=== PATIENT | female | born 1980 | race African-American/Black ===

== ENCOUNTER 2024-10-18 15:35 | Outpatient (REF) | payer MEDICAID, SELFPAY ==
[2024-10-18 17:01] LABS: Estimated Average Glucose 108 mg/dL; Hemoglobin A1C 120.3698 umol/L; Hemoglobin A1c % 5.4 % (<6.0); Total Hemoglobin (HGBA1C) 3357.6367 umol/L
[2024-10-18 17:42] LABS: Alanine Aminotransferase 17 U/L (0-31); Anion Gap 10 (12-20); Aspartate Amino Transferase 21 U/L (5-31); Bilirubin Total 0.5 mg/dL (0.0-1.0); Blood Urea Nitrogen 14 mg/dL (9-16); Calcium 8.9 mg/dL (8.4-10.2); Carbon Dioxide 25 mmol/L (22-29); Chloride 108 mmol/L (96-108); Cholesterol 146 mg/dL (<200); Estimated Glomerular Filt Rate > 60; Glucose Random 84 mg/dL (60-115); HDL Cholesterol 56 mg/dL (>40); LDL Cholesterol Calculated 78 mg/dL (<100); Sodium 139 mmol/L (135-145); Total Protein 7.3 g/dL (6.5-8.0); Triglycerides 64 mg/dL (<150)
[2024-10-18 17:47] LABS: Alkaline Phosphatase 50 U/L (39-117); TSH reflex Free T4 0.68 uIU/mL (0.32-4.0)
[2024-10-19 03:48] LABS: CT PCR NOT DETECTED (Not Detect.); NG PCR NOT DETECTED (Not Detect.)
[2024-10-19 08:44] LABS: HIV AB/AG Nonreactive (Nonreactive); HIV Num 1 0.07 S/CO (0.00-0.99); ~HepC Num1 0.16 S/CO (0.00-0.79); ~Hepatitis C Antibody Nonreactive (Nonreactive)
[2024-10-20 14:57] LABS: RPR Rapid Plasma Reagin REACTIVE (NON-REACTIVE)
== END 2024-10-18 15:36 | disposition home or self-care (01) ==
LOC: HO.HHCL 15:35
PROVIDERS: Visit Provider Nurse Practitioner Family
DX: Z00.00 Encounter for general adult medical examination without abnormal findings (principal); Z11.4 Encounter for screening for human immunodeficiency virus [HIV]; Z11.3 Encounter for screening for infections with a predominantly sexual mode of transmission; R73.9 Hyperglycemia, unspecified; E01.0 Iodine-deficiency related diffuse (endemic) goiter
CPT/HCPCS: 36415; 80053; 80061; 83036; 84443; 86592; 86593; 86803; 87389; 87491; 87591

== ENCOUNTER → 2024-12-07 15:45 | Outpatient (BNV) | payer MEDICAID, SELFPAY | PROVIDERS: PCP Nurse Practitioner Family; Visit Provider Internal Medicine | DX: Z12.31 Encounter for screening mammogram for malignant neoplasm of breast (principal) | CPT/HCPCS: 77063; 77067 ==

== ENCOUNTER 2024-12-07 15:54 | Outpatient (REF) | payer MEDICAID, SELFPAY | END 2024-12-07 15:55 | disposition home or self-care (01) | LOC: HO.MAMMO 15:54 | PROVIDERS: PCP Nurse Practitioner Family; Visit Provider Nurse Practitioner Family | DX: Z12.31 Encounter for screening mammogram for malignant neoplasm of breast (principal) | CPT/HCPCS: 77063; 77067 ==

== ENCOUNTER 2024-12-27 14:23 | Outpatient (REF) | payer MEDICAID, SELFPAY ==
[2024-12-28 09:26] LABS: Syphilis Screen Reactive (Nonreactive)
[2025-01-02 09:42] LABS: RPR Quantitative Reactive 1:2 (Nonreactive); T.Pallidum Particle Agg Test Reactive (Nonreactive)
== END 2024-12-27 14:24 | disposition home or self-care (01) ==
LOC: HO.HHCL 14:23
PROVIDERS: Visit Provider Nurse Practitioner Family
DX: R76.0 Raised antibody titer (principal)
CPT/HCPCS: 36415; 86592; 86780

== ENCOUNTER 2025-01-05 13:12 | Outpatient (REF) | payer MEDICAID, SELFPAY ==
[2025-01-05 16:57] LABS: HCG Quantitative < 2 mIU/mL
== END 2025-01-05 13:13 | disposition home or self-care (01) ==
LOC: HO.HHCL 13:12
PROVIDERS: Visit Provider Nurse Practitioner Family
DX: A51.9 Early syphilis, unspecified (principal)
CPT/HCPCS: 36415; 84702

== ENCOUNTER 2025-01-20 16:29 | Outpatient (REF) | payer MEDICAID, SELFPAY | END 2025-01-20 16:30 | disposition home or self-care (01) | LOC: HO.HHCLNP 16:29 | PROVIDERS: Visit Provider Nurse Practitioner Family | DX: Z12.4 Encounter for screening for malignant neoplasm of cervix (principal); Z11.51 Encounter for screening for human papillomavirus (HPV); Z11.3 Encounter for screening for infections with a predominantly sexual mode of transmission | CPT/HCPCS: 81515; 87491; 87591; 87626; 87661; 88175 ==

== ENCOUNTER 2025-03-21 12:46 | Outpatient (REF) | payer MEDICAID, SELFPAY ==
--- NOTE | ~2025-03-21 | XR_ITS ---
EXAMINATION: XR SHOULDER 2 OR MORE VIEWS LEFT HISTORY: pain COMPARISON: There are no prior studies available for comparison. FINDINGS: Five views of the left shoulder are submitted. Osseous mineralization is normal. There is no fracture or dislocation. The joint spaces are preserved. The soft tissues are unremarkable. XR/XR shoulder LT min 2V IMPRESSION: Unremarkable examination of the left shoulder. Electronically signed by: Ozzy Tan MD 03/21/2025 01:21 PM EDT
--- OUTSIDE RECORDS SUMMARY | 2025-03-21 13:55 | XMS_ITS | Encounter Summary ---
Author Organization [employer] Address [address] [facility] [address] [place] [address] Care Team Providers Care Catapult And Arresting Gear Officer Name Role Phone Tahira Meek NP Primary Care Provider [phone] Reason for Visit * Reason Onset Date Comments Results 12/20/2024 Encounter Details Date Type Department Care Team ([facility] st Contact Info) Description 12/20/2024 Telephone [facility] [address] [place], [place] [phone] Tahira Meek NP [address] [place], [place] [phone] Results Social History Tobacco Use Types Packs/Day Years Used Date Smoking Tobacco: Never Passive Smoke Exposure: Never Smokeless Tobacco: Never Alcohol Use Standard Drinks/Week Comments Never 0 (1 standard drink = 0.6 oz pur e alcohol) Comments Unknown Sex and Gender Information Value Date Recorded Sex Assigned at Female 05/02/2024 4:30 PM EDT Legal Sex Female 2:34 PM EDT Gender Identity Female 05/02/2024 4:30 PM EDT Sexual Orientation Straight 05/02/2024 4: 30 PM EDT documented as of this encounter Miscellaneous Notes * Telephone Encounter - Ban Amor RN - 12/27/2024 1:25 PM EDT Images from the original note were not included. TC x 2 placed to pt via S airport attendant (ID#[id number]) per below PCP message. Message recevied, The person you are trying to reach has a voicemail box that has not been set up yet. Please try your call again later. Individual then answered and asked for database programmer analyst. TC placed to pt via [facility] airport attendant (Dara). 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 Pt reports they have not been treated before. Pt reports they will come to the lab now for blood work. Pt denies further questions at this time. Message forwarded to PCP as an FYI. 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 has she ever been treated before? If not, please follow up with blood work as ordered, thank you. We will call pt when results are available * Telephone Encounter - Tahira Meek NP - 12/27/2024 11:10 AM EDT Case reviewed with partner services, no antibody on file, will order confirmatory testing after clarifying hx. * Telephone Encounter - Katya Driver RN - 12/21/2024 10:46 AM EDT Tc to Vee @ [facility] in regards to RPR reactive 1:8 result done on 10/18/24. They asked when pt LMP was.They would like to know if PCP will be doing anything for treatment or ordering an antibodies testing. Advised them we'll send a message to the PCP to review and call them back to let them know what their plan is. Vee verbalized understanding. Tc to Vee @[facility] per PCP Please call [facility] for next steps on this result, pt hx of treatment unknown thank you . Vee recommends for PCP to order an syphilis antibody and another RPR confirmatory testing as well. Message sent to PCP for review. * Telephone Encounter - Genevieve Lin - 12/20/2024 4:02 PM EDT Tc from vee with [facility] requesting a call back regarding some result that they receive Contact Vee at [phone] documented in this encounter Plan of Treatment Upcoming Encounters Date Type Department Care Team (Late st Contact Info) Description 04/11/2025 3:00 PM EDT Office Visit [facility] [address] [place] [address] Marianne Jarquin 07/03/2025 11:00 AM EST Office Visit [facility] [address] [place] [address] Lillie Mena, OD [address] [place] [address] Scheduled Orders Name Type Priority Associated Diagnoses Orde r Schedule Treponema pallidum, confirmation Lab Routine Abnormal antibody titer Expected: 12/27/2024 (Approximate), Expires: 12/27/2025 documented as of this encounter Procedures Procedure Name Priority Date/Time Associated Diagnosis Comments CONFIRMATORY SYPHILIS PROFILE Routine 12/27/2024 3:56 PM EDT Abnormal antibody titer documented in this encounter Results * (ABNORMAL) Confirmatory Syphilis Profile (12/27/2024 3:56 PM EDT) Rapid Plasma Reagin, Quant Reactive 1:2(A) Nonreactive [facility] Treponema pallidum Antibody, Particle Agglutination Reactive(A) Nonreactive [facility] Comment:These results must b e reported by the ordering clinician orclinical facility to the [place] [facility] required by state law.Testing performed at: [address] [address] 12/27/2024 3:56 PM EDT 12/28/2024 9:24 AM EDT us Tahira Meek NP LAB BLOOD ORDERABLES Final Resul t [facility] [address] [place] [address] [phone] documented in this encounter Visit Diagnoses Diagnosis Abnormal antibody titer- Primary documented in this encounter Care Teams Catapult And Arresting Gear Officer Relationship Specialty Start Date End Date Tahira Meek NP [address] [place] [phone] PCP - General Family Medicine 10/18/24 documented as of this encounter
== END 2025-03-21 12:47 | disposition home or self-care (01) ==
LOC: HO.HHCX 12:46
PROVIDERS: Visit Provider Internal Medicine
DX: M25.512 Pain in left shoulder (principal)
CPT/HCPCS: 73030

== ENCOUNTER → 2025-03-21 12:46 | Outpatient (BNV) | payer MEDICAID, SELFPAY | PROVIDERS: Visit Provider Radiology Diagnostic Radiology | DX: M25.512 Pain in left shoulder (principal) | CPT/HCPCS: 73030 ==

== ENCOUNTER 2025-06-13 14:34 | Outpatient (REF) | payer MEDICAID, SELFPAY ==
[2025-06-13 16:42] LABS: Alanine Aminotransferase 19 U/L (0-31); Albumin Level 4.5 g/dL (3.5-5.0); Alkaline Phosphatase 63 U/L (39-117); Anion Gap 11 (12-20); Aspartate Amino Transferase 24 U/L (5-31); Blood Urea Nitrogen 15 mg/dL (9-16); Calcium 9.0 mg/dL (8.4-10.2); Carbon Dioxide 24 mmol/L (22-29); Chloride 105 mmol/L (96-108); Cholesterol 145 mg/dL (<200); Estimated Glomerular Filt Rate > 60; HDL Cholesterol 56 mg/dL (>40); Potassium 4.1 mmol/L (3.3-5.1); Sodium 136 mmol/L (135-145); Total Protein 7.2 g/dL (6.5-8.0); Triglycerides 44 mg/dL (<150)
== END 2025-06-13 14:35 | disposition home or self-care (01) ==
LOC: HO.HHCL 14:34
PROVIDERS: PCP Nurse Practitioner Family; Visit Provider Nurse Practitioner Family
DX: E66.9 Obesity, unspecified (principal)
CPT/HCPCS: 36415; 80053; 80061; 83036

== ENCOUNTER 2025-07-05 13:24 | Outpatient (REF) | payer MEDICAID, SELFPAY ==
--- OUTSIDE RECORDS SUMMARY | 2025-07-03 11:00 | XMS_ITS | Encounter Summary ---
Author Organization [employer] Address [address] [place] [address] [address] [place] [address] Care Team Providers Care Mobile Plant Operators Name Role Phone Tahira Meek NP Primary Care Provider [phone] Encounter Details Date Type Department Care Team ([facility] st Contact Info) Description 07/03/2025 11:00 AM EST Office Visit [facility] OPTOMETRY [address] [place], [place] [phone] TarLillie melo, OD [address] [place], [place] [phone] Open angle with borderline findings, low risk, bilateral (Primary Dx) Social History Tobacco Use Types Packs/Day Years Used Date Smoking Tobacco: Never Passive Smoke Exposure: Never Smokeless Tobacco: Never Alcohol Use Standard Drinks/Week Comments Never 0 (1 standard drink = 0.6 oz pur e alcohol) Housing Stability Answer Date Recorded What is your housing situation today? I have lisa desouza 06/13/[address] you li ve. Do you have problems with any of the following? Inadequate heat;None of the above 06/13/2025 Food Insecurity Answer Date Recorded Within the past 12 months, y ou worried that your food would run out before you got money to buy more: Often true 2024 Within the past 12 months,th e food you bought just didn't last and you didn't have enough money to get more: Sometimes True 06/13/2025 Transportation Answer Date Recorded In the past 12 months, has l ack of transportation kept you from medical appts, meetings, work or from getting things needed for daily living? Yes, it has kept me from medical appointments or getting medications.;Yes, it has kept me from non-medical meetings, work, or getting things that I need 06/13/2025 Utilities Answer Date Recorded In the past 12 months, has t he electric, gas, oil or water company threatened to shut off services in your home? No 06/13/2025 Depression Answer Date Recorded Patient Health Questionnaire-2 Score 0 06/13/2025 Internet Access Answer Date Recorded Internet Access Q1 No 06/13/2025 Internet Access Q2 I cannot afford it 06/13/2025 Comments Unknown Sex and Gender Information Value Date Recorded Sex Assigned at Female 05/02/2024 4:30 PM EDT Legal Sex Female 2:34 PM EDT Gender Identity Female 05/02/2024 4:30 PM EDT Sexual Orientation Straight 05/02/2024 4: 30 PM EDT documented as of this encounter Progress Notes * Lillie Mena, OD - 07/03/2025 11:00 AM EST Eye Care Progress Note Patient ID: Nay Blackwood is a 44 y.o. female. HPI Patient presents for IOP check and repeat OCTs OU Patient is happy with vision OU through her current glasses. Patient denies any other visual or ocular concerns. Last edited by Lillie Mena, OD on 07/03/2025 11:31 AM. Current Medications[1] Medical History[2] Surgical History[3] Family History[4] Tobacco Use: Low Risk (06/13/2025) Tobacco Smoking Tobacco Use: Never Smokeless Tobacco Use: Never Passive Exposure: Never Allergies[5] ROS Positive for: Eyes Negative for: Constitutional, Gastrointestinal, Neurological, Skin, Genitourinary, Musculoskeletal,HENT, Endocrine, Cardiovascular, Respiratory, Psychiatric, Allergic/Imm, Heme/Lymph Last edited by Lillie Mena, OD on 07/04/2025 9:35 AM. Base Eye Exam Visual Acuity (Snellen - Linear) Right Left Dist cc 20/25-1 20/25-1 Tonometry (Applanation, 11:27 AM) Right Left Pressure 17 17 Pupils Pupils APD Right PERRL None Left PERRL None Visual Young (Counting fingers) Left Right Full Full Extraocular Movement Right Left Full Full Neuro/Psych Oriented x3: Yes Mood/Affect: Normal Dilation Both eyes: 1.0% tropicamide @ 11:30 AM Slit Lamp and Fundus Exam External Exam Right Left External Normal Normal Slit Lamp Exam Right Left Lids/Lashes Clean and clear Clean and clear Conjunctiva/Sclera White and quiet White and quiet Cornea 1+ inferior SPK 1+ inferior SPK Anterior Chamber Deep and quiet, angles open Deep and quiet, angles open Iris Flat, round Flat, round Lens Clear Clear Fundus Exam Right Left Vitreous Clear Clear Disc Chesaning and healthy, large ONH Chesaning and healthy, large ONH C/D Ratio Vertical 0.70 0.70 C/D Ratio Horizontal 0.70 0.65 Macula Flat, even pigmentation Flat, even pigmentation Vessels AV 2/3, normal course and caliber AV 2/3, normal course and caliber Periphery No holes/tears/detachments 360 No holes/tears/detachments 360 Assessment and Plan Diagnoses and all orders for this visit: Open angle with borderline findings, low risk, bilateral - Glaucoma risk profile/summary - POAG suspect due to: large cup-to-disc ratio (C/D) both eyes (OU), high myopia - Fhx glaucoma: None - IOP today (GAT): - Tmax - RNFL OCT today (07/04/25): Robust RNFL 360 both eyes (OU). Stable. - GCL OCT today (07/04/25): Robust RNFL 360 both eyes (OU). Stable. - Very low risk suspect OU at this time. Ok to monitor annually. RTC in 1 year for comprehensive eye exam or sooner as needed Lillie Rajesh, OD 07/04/2025, 1:01 PM Gardener Florist Source: __ None __ Bilingual Staff _x_ Qualified Staff Clinical Research Analyst __ Telephone Gardener Florist; ID# __ Gardener Florist brought by patient (family member, friend, GENERAL INTERNAL MEDICINE DOCTOR, etc) __ In person glazier supervisor __ Ipad Gardener Florist; ID#: Language Spoken During Exam: Carolee Mcneil [1] Current Outpatient Medications Medication Sig Dispense Refill acetaminophen (Tylenol 8 Hour) 650 MG ER tablet Take 1 tablet (650 mg) by mouth every 8 (eight) hours if needed for mild pain. Do not crush, chew, or split. 30 tablet 0 Blood Pressure kit 1 kit if needed each day (bood pressure). 1 kit 0 ibuprofen 600 MG tablet Take 1 tablet (600 mg) by mouth 3 times daily. 15 tablet 0 polyvinyl alcohol (Liquifilm Tears) 1.4 % ophthalmic solution Administer 1 drop into both eyes if needed in the morning and at bedtime for dry eyes. 15 mL 4 No current facility-administered medications for this visit. [2] Past Medical History: Diagnosis Date No known health problems [3] No past surgical history on file. [4] No family history on file. [5] No Known Allergies documented in this encounter Plan of Treatment Upcoming Encounters Date Type Department Care Team (Late st Contact Info) Description 07/13/2025 2:00 PM EST Clinical Support [facility] [address] [place] [address] 10/11/2025 12:45 PM EDT Office Visit [facility] ADULT DENTAL [address] [place], [place] [phone] Lainey, Concepcion [address] [place] [address] documented as of this encounter Procedures Procedure Name Priority Date/Time Associated Diagnosis Comments OCT, OPTIC NERVE - OU - BOTH EYES Routine 07/03/2025 11:00 AM EST Open angle with borderline findings, low risk, bilateral documented in this encounter Results * OCT, Optic Nerve - OU - Both Eyes (07/03/2025 11:00 AM EST) Lillie Rankin, OD - 07/04/2025 9:41 AM EST OCT OPTIC NERVE INTERPRETATION Optical Coherence Tomography Interpretation Report Reliability: OD: SS 46 - adequate quality scan OS: SS 55 - good quality scan Measurements: Avg RNFL thickness OD: 112 microns OS: 115 microns Test findings: OD: Robust RNFL 360. Some changes to inferior nasal and superior nasal however poorer signal quality is likely confounding results. OS: Robust RNFL 360 except for borderline thin area at 5:00. Stable to last. note - attempted 3D wide image for OS but unable to obtain high quality image due to highly curved myopic fundus, only able to obtain adequate quality results with disc report Impression and Plan: Very low risk primary open angle glaucoma (POAG) suspect. Monitor yearly with OCT us Lillie Mena OD OPHTH TOMOGRAPHY Final Result documented in this encounter Visit Diagnoses Diagnosis Open angle with borderline findings, low risk, bilateral- Primary documented in this encounter Care Teams Mobile Plant Operators Relationship Specialty Start Date End Date Tahira Meek NP [address] [place] [phone] PCP - General Family Medicine 10/18/24 documented as of this encounter
--- OUTSIDE RECORDS SUMMARY | 2025-07-05 15:56 | XMS_ITS | Encounter Summary ---
Author Organization [employer] Address [address] [facility] [address] [place] [address] Care Team Providers Care Security Manager Name Role Phone GaviotaTahira CARINA Primary Care Provider [phone] Encounter Details Date Type Department Care Team (Latest Contact Info) Description 07/03/2025 Travel Social History Tobacco Use Types Packs/Day Years [...] PM EDT documented as of this encounter Plan of Treatment Upcoming Encounters Date Type Department Care Team (Late st Contact Info) Description 07/13/2025 2:00 PM EST Clinical Support [facility] [address] [place] [address] 10/11/2025 12:45 PM EDT Office Visit [facility] ADULT DENTAL [address] [place] [address] Concepcion Retana [address] [place] [address] documented as of this encounter Visit Diagnoses Not on filedocumented in this encounter Care Teams Security Manager Relationship Specialty Start Date End Date Tahira Meek NP [address] [place] [address] PCP - General Family Medicine 10/18/24 documented as of this encounter
--- OUTSIDE RECORDS SUMMARY | 2025-07-05 15:56 | XMS_ITS | Clinical Summary ---
Author Organization [employer] Address [address] [place] [address] Care Team Providers Care Data Entry Technician Name Role Phone Tahira Meek NP Primary Care Provider Allergies No known active allergies Medications * This document contains information received from the source organization and may not represent a complete record from that organization. Blood Pressure kitIndications: Elevated blood pressure reading 1 kit if needed each day (bood pressure). 1 kit 5 Active polyvinyl alcohol (Liquifilm Tears) 1.4 % ophthalmic solutionIndicat ions:Dry eyes, bilateral Administer 1 drop into both eyes if needed in the morning and at bedtime for dry eyes. 15 mL 4 07/05/2025 1:22 PM EST 5 Active acetaminophen (Tylenol 8 Hour) 650 MG ER tablet Take 1 tablet (650 mg) by mouth every 8 (eight) hours if needed for mild pain. Do not crush, chew, or split. 30 tablet 5 Active ibuprofen 600 MG tabletIndicatio ns:Pain, dental Take 1 tablet (600 mg) by mouth 3 times daily. 15 tablet 5 Active Active Problems Problem Noted Date Diagnosed Date Carpal tunnel syndrome on both sides 06/13/2025 Assessment & Plan (06/13/2025 1:43 PM EST): Dietary counseling 06/13/2025 Assessment & Plan (06/13/2025 1:43 PM EST): Exercise counseling 06/13/2025 Assessment & Plan (06/13/2025 1:43 PM EST): Obesity (BMI 30-39.9) 06/13/2025 Assessment & Plan (06/13/2025 1:43 PM EST): Orders: Lipid Panel, Standard; Future Comprehensive Metabolic Panel; Future Hemoglobin A1c; Future Alveolitis of jaw, right 05/09/2025 Dental caries 05/09/2025 Pain, dental 05/09/2025 Dental calculus 04/05/2025 Acute pain of left shoulder 03/21/2025 Chest wall pain 03/21/2025 Assessment & Plan (03/21/2025 2:48 PM EDT): ED precautions were reviewed with patient Intercostal pain 03/21/2025 Vaginal thomas 01/23/2025 Positive RPR test 01/20/2025 Assessment & Plan (01/22/2025 3:12 PM EDT): Titer of 1: 8, asymptomatic, no known history of dx or treatment. 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 Contraception options reviewed, pt contemplative, did not like depo when was prescribed it hx, declines intervention today Anticipatory guidance reviewed, Schedule pap Hyperglycemia 10/18/2024 Elevated blood pressure reading 10/18/2024 Assessment & Plan (06/13/2025 1:43 PM EST): Assessment & Plan (12/17/2024 11:08 AM EDT): Bp kit prescribed, Monitor home bp Breast screening 10/18/2024 Assessment & Plan (12/17/2024 11:09 AM EDT): Mammogram ordered Thyromegaly 10/18/2024 Assessment & Plan (12/17/2024 11:08 AM EDT): Denies symptoms Labs as ordered below Encounters * This document contains information received from the source organization and may not represent a complete record from that organization. Date Type Department Care Team Description 07/03/2025 11:00 AM EST Office Visit [facility] OPTOM[facility]RY [address] [place] [address] Lillie Mena, OD Open angle with borderline findings, low risk, bilateral (Primary Dx) 07/03/2025 Travel 06/13/2025 1:00 PM EST Procedure Visit [facility] MEDICINE [address] [place] [address] aThira Meek NP Elevated blood pressure reading (Primary Dx); Carpal tunnel syndrome on both sides; Dietary counseling; Exercise counseling; Obesity (BMI 30-39.9) 06/13/2025 Travel 06/12/2025 Telephone [facility]IC[facility] [address] [place] [address] Tahira Meek NP Chart Prep 05/19/2025 2:30 PM EDT Office Visit [facility] ADULT DENTAL [address] [place] [address] Temo Kc DDS Alveolitis of jaw, right (Primary Dx); Pain, dental 05/09/2025 9:00 AM EDT Office Visit [facility] ADULT DENTAL [address] [place] [address] Temo Kc DDS Periodontal disease (Primary Dx); Dental caries; Pain, dental 04/05/2025 3:00 PM EDT Office Visit [facility] ADULT DENTAL [address] [place] [address] Concepcion Retana Dental calculus (Primary Dx) from Last 3 Months Social History Tobacco Use Types Packs/Day Years Used Date Smoking Tobacco: Never Passive Smoke Exposure: Never Smokeless Tobacco: Never Tobacco Cessation:Counseling Given: No Alcohol Use Standard Drinks/Week Comments Never 0 [...] Orientation Straight 05/02/2024 4: 30 PM EDT Last Filed Vital Signs Vital Sign Reading Time Taken Comments Blood Pressure 134/96 06/13/2025 1:10 PM EST Pulse 81 06/13/2025 1:10 PM EST Temperature 36.9 C (98.5 F) 06/13/2025 1:10 PM EST Respiratory Rate 14 06/13/2025 1:10 PM EST Oxygen Saturation 99% 06/13/2025 1:10 PM EST Inhaled Oxygen Concentration - - Weight 93.7 kg (206 lb 8 oz) 06/13/2025 1:10 PM EST Height 160 cm (5' 2.99 ) 06/13/2025 1:10 PM EST Body Mass Index 36.59 06/13/2025 1:10 PM EST Plan of Treatment Upcoming Encounters Date Type Department Care Team (Late st Contact Info) Description 07/13/2025 2:00 PM EST Clinical Support [facility] [address] [place] [address] 10/11/2025 12:45 PM EDT Office Visit [facility] ADULT DENTAL [address] [place] [address] Lainey, Concepcion [address] [place] [address] Health Maintenance Due Date Last Done Comments Family Planning (PISQ) 11/25/1995 HPV Vaccines (1 - 3-dose series) 11/25/1995 DTaP/Tdap/Td Vaccines (1 - Tdap) 11/25/1999 Hepatitis B Vaccines (1 of 3 - 19+ 3-dose series) 11/25/1999 Dental Oral Exam 03/08/2025 09/07/2024 COVID-19 Vaccine (1 - 2024-2 6 season) 2025 Influenza Vaccine (#1) 2025 Dental X-Ray: Bitewings 09/08/2025 09/07/2024 Dental Prophylaxis 10/04/2025 04/05/2025, 09/13/2024 Alcohol/Substance Use Screening 01/20/2026 01/20/2025 Depression Screening 06/13/2026 06/13/2025, 06/13/2025 Disability Screening 06/13/2026 06/13/2025 SDOH Screening 06/13/2026 06/13/2025 Tobacco Screening 06/13/2026 06/13/2025 Mammogram 12/07/2026 12/07/2024 Pap Smear 01/21/2028 01/20/2025 Dental X-Ray: Full Mouth 05/10/2028 025, 09/07/2024 Cervical Cancer Screening 01/20/2030 HPV/Cotest 01/20/2030 01/20/2025 Lipid Panel 06/13/2030 06/13/2025, 10/18/2024 Zoster Vaccines (1 of 2) 2030 RSV Patients and Patients Aged 60 years or older (1 - 1-dose 75+ series) 11/25/2055 HIV Screening Completed 10/18/2024 Hepatitis C Screening Completed 10/18/2024 HIB Vaccines Aged Out No longer eligi ble based on patient's age to complete this topic Hepatitis A Vaccines Aged Out No long er eligible based on patient's age to complete this topic IPV Vaccines Aged Out No longer eligi ble based on patient's age to complete this topic Meningococcal B Vaccine Aged Out No l onger eligible based on patient's age to complete this topic Meningococcal Vaccine Aged Out No jamshid sintia eligible based on patient's age to complete this topic Pneumococcal Vaccine: Pediatrics (0 to 5 Years) and At-Risk Patients (6 to 49) Years Aged Out No longer eligible b ased on patient's age to complete this topic RSV under 20 months Aged Out No longe r eligible based on patient's age to complete this topic Rotavirus Vaccines Aged Out No longer eligible based on patient's age to complete this topic Procedures Procedure Name Priority Date/Time Associated Diagnosis Comments OCT, OPTIC NERVE - OU - BOTH EYES Routine 07/03/2025 11:00 AM EST Open angle with borderline findings, low risk, bilateral HEMOGLOBIN A1C Routine 06/13/2025 2:40 PM EST Obesity (BMI 30-39.9) COMPREHENSIVE METABOLIC PANEL Routine 06/13/2025 2:40 PM EST Obesity (BMI 30-39.9) LIPID PANEL, STANDARD Routine 06/13/2025 2:40 PM EST Obesity (BMI 30-39.9) NO CHARGE VISIT Routine 05/19/2025 2:30 PM EDT 32 EXTRACTION, ERUPTED TOOTH REQ REMOVAL OF BONE AND/OR SECTIONING OF TOOTH Routine 05/09/2025 9:00 AM EDT PANORAMIC RADIOGRAPHIC IMAGE Routine 05/09/2025 9:00 AM EDT CASE PRESENTATION, DETAILED AND EXTENSIVE TREATMENT PLANNING Routine 05/09/2025 9:00 AM EDT CASE PRESENTATION, DETAILED AND EXTENSIVE TREATMENT PLANNING Routine 04/05/2025 3:00 PM EDT Dental calculus ORAL HYGIENE INSTRUCTIONS Routine 04/05/2025 3:00 PM EDT Dental calculus PROPHYLAXIS - ADULT Routine 04/05/2025 3 :00 PM EDT Dental calculus HPV DNA, LOW/HIGH RISK Routine 3:01 PM EDT Cervical cancer screening PAP SMEAR Routine 01/20/2025 3:01 PM EDT Cervical cancer screening BI MAMMOGRAM SCREENING TOMOSYNTHESIS BILATERAL Routine 12/07/2024 3:58 PM EDT Breast screening HEPATITIS C AB W/REFL TO HCV RNA, QN, PCR Routine 10/18/2024 3:38 PM EDT Routine general medical examination at a health care facility HIV 1/2 ANTIGEN/ANTIBODY, FOURTH GENERATION W/RFL Routine 10/18/2024 3:38 PM EDT Routine general medical examination at a health care facility INTRAORAL - COMPLETE SERIES OF RADIOGRAPHIC IMAGES Routine 09/07/2024 9:30 AM EST Encounter for dental examination Dental caries Dental calculus Dental plaque COMPREHENSIVE ORAL EVALUATION - NEW OR ESTABLISHED PATIENT Routine 09/07/2024 9:30 AM EST Encounter for dental examination Dental caries Dental calculus Dental plaque from Last 3 Months or Most Recently Relevant to Health Maintenance Results * OCT, Optic Nerve - OU [...] Lillie Mena OD OPHTH TOMOGRAPHY Final Result * Hemoglobin A1c (06/13/2025 2:40 PM EST) Hemoglobin A1c 5.6 <6.0 % [facility] Comment:Hemoglobin A1C Refer ence Range Adults: 4.8 - 6.0 % Non diabetic: < 6.0 % Goal: < 7.0 %Additional Action Suggested: > 8.0 %Note: Hemoglobin A1c results are invalid for patients with abnormal amounts of HbF. Blood transfusions may impact the HbA1c concentration in the patient sample. Estimated Average Glucose 114 mg/dL [facility] Comment:eAG = Estimated ave rage glucose which is %A1C expressed asaverage glucose, using the formula of the X0T-AudebwnDmuxfno Glucose study (ADAG), Diabetes Care, Vol.31,#8,Mar. 2007 Blood Venous blood specimen / Unknown 06/13/2025 2:40 PM EST 06/13/2025 4:08 PM EST Tahira Meek [employer] LAB BLOOD ORDERABLES Final Resul t [facility] [address] [place] [address] [phone] * Lipid Panel, Standard (06/13/2025 2:40 PM EST) Triglycerides 44 <150 mg/dL [facility] Comment:Desirable Triglyceri de: less than 150 mg/dLBorderline High Triglyceride 150-199 mg/dLHigh Triglyceride: 200-499 mg/dLVery High Triglyceride: greater than or equal to 5OO mg/dL Cholesterol 145 <200 mg/dL [facility] Comment:Desirable Cholestero l: less than 200 mg/dLBorderline High Cholesterol: 200-239 mg/dLHigh Cholesterol: greater than 239 mg/dL LDL Cholesterol Calculated 81 <100 mg/dL [facility] Comment:Desirable LDL: less than 100 mg/dLNear Optimal/Above Optimal LDL: 110- 129 mg/dLBorderline High LDL: 130-159 mg/dLHigh LDL: 160-189 mg/dLVery High LDL: greater than or equal to 190 mg/dL HDL Cholesterol 56 >40 mg/dL [facility] Comment:Desirable HDL: great er than 40 mg/dL Note: This HDL assay may give artificially low results in patients with liver disease. Blood Venous blood specimen / Unknown 06/13/2025 2:40 PM EST 06/13/2025 4:08 PM EST us Tahira Meek [employer] LAB BLOOD ORDERABLES Final Resul t [facility] [address] [place] [phone] [phone] * (ABNORMAL) Comprehensive Metabolic Panel (06/13/2025 2:40 PM EST) Sodium 136 135 - 145 mmol/L [facility] Potassium 4.1 3.3 - 5.1 mmol/L [facility] Chloride 105 96 - 108 mmol/L [facility] Carbon Dioxide 24 22 - 29 mmol/L [facility] Anion Gap 11(L) 12 - 20 [facility] Urea Nitrogen (BUN) 15 9 - 16 mg/dL [facility] Creatinine, Serum 0.82 0.5 - 1.4 mg/dL [facility] Estimated Glomerular Filt Rate >60 [facility] Comment:Chronic Kidney Disea se: Estimated GFR < 60 mL/min/1.47m0Udwbtb Kidney Disease: Estimated GFR < 15 mL/min/1.73m2 Glucose 90 60 - 115 mg/dL [facility] Calcium 9.0 8.4 - 10.2 mg/dL [facility] Bilirubin, Total 0.5 0.0 - 1.0 mg/dL [facility] Aspartate Amino Transferase 24 5 - 31 U/L [facility] Alanine Aminotransferase 19 0 - 31 U/L [facility] Total Protein 7.2 6.5 - 8.0 g/dL [facility] Albumin Level 4.5 3.5 - 5.0 g/dL [facility] Alkaline Phosphatase 63 39 - 117 U/L [facility] Blood Venous blood specimen / Unknown 06/13/2025 2:40 PM EST 06/13/2025 4:08 PM EST Tahira Meek NP LAB BLOOD ORDERABLES Final Resul t Performing Organization Address [facility]/ZIP Co de Phone Number [facility] [address] [place] [phone] * HPV High Risk with Reflex to Subtypes (01/20/2025 3:01 PM EDT) HPV High Risk Negative Negative [facility] HPV Genotype 16 Negative Negative [facility] HPV Genotype 18 Negative Negative [facility] Comment:HPV testing performe d at [facility] (CLIA#[id number]), [address] [place] [address].Testing for HPV was performed using the [employer]LEY 6800system. The presence of HPV in the female genital tract isassociated with a number of diseases, including cervicalcarcinoma. The HPV DNA high risk pool tests for HPV 31, 33,35, 39, 45, 51, 52, 56, 58, 59, 66 and 68. The testing forHPV 16 and 18 genotypes has also been performed. A positiveresult indicates detection of nucleic acid sequences fromone or more subtypes, whereas a negative result indicatessuch sequences were not detected. Pap Vial 01/20/2025 3:01 PM EDT 01/23/2025 8:15 AM EDT us Tahira Meek NP LAB BLOOD ORDERABLES Final Resul t Performing Organization Address [facility]/ZIP Co de Phone Number [facility] [address] [place] [phone] * Pap Smear (01/20/2025 3:01 PM EDT) Swab 01/20/2025 3:01 PM EDT 01/23/2025 8:15 AM EDT Narrative [facility] - 01/30/2025 12:11 PM EDT ----- ------- Name: Nay Salvador Age/Sex: 44/F : 1980 Unit#: [id number] Attend Dr: Re01/20/25 Status: PRE REF Location: [facility] Disch: ----- ------- SPEC : [id number] RECD: 01/23/25 STATUS: JOSÉ AGUAYO NUM: [id number] HANDY: 01/20/25-[facility] DR: Tahira Meek [employer] P[employer] ENTERED: 01/23/25 SP TYPE: Pap Smr SABRINA DR: ORDERED: Pap Smear, PAP path review Interpretation General Category: Negative for intraepithelial lesion/malignancy. Adequacy: No endocervical cells present. Interpretation: Focal parakeratosis. Fungal organisms consistent with Thomas species. HPV High Risk: Negative HPV Genotyping 16: Negative HPV Genotyping 18: Negative Clinical Information LMP: 01/12/2025 Previous PAP test: Unknown date/findings Other history: Cervical cancer screening Material Received ThinPrep-Cervical PAP Disclaimer As of May 25, 2024, the technical services to include automated prescreening performed by the ThinPrep Imaging System, PAP screening and HPV testing will be performed at [facility] (CLIA #[id number]), [address] [place] [address]. Testing for HPV was performed using the [employer] 6800 system. The presence of HPV in the female genital tract is associated with a number of diseases, including cervical carcinoma. The HPV DNA high risk pool tests for HPV 31, 33, 35, 39, 45, 51, 52, 56, 58, 59, 66 and 68. The testing for HPV 16 and 18 genotypes has also been performed. A positive result indicates detection of nucleic acid sequences from one or more subtypes, whereas a negative result indicates such sequences were not detected. All professional services are performed by [facility] ([address] [place] [address]; ; CLIA #[id number]). The PAP Test is a screening procedure with the inherent possibility of both false negative and false positive results. Results should be interpreted in the context of historic and current clinical findings. Reliability of the PAP Test is enhanced by performing the test on a regular repetitive basis. CONTINUED ON NEXT PAGE ----- ------- Name: Nay Salvador Age/Sex: 44/F : 1980 Unit#: [id number] Attend Dr: Re01/20/25 Status: PRE REF Location: [facility] Disch: ----- ------- SPEC : [id number] RECD: 01/23/25 STATUS: JOSÉ AGUAYO NUM: [id number] HANDY: 01/20/25-[address]: Tahira Meek [employer] ENTERED: 01/23/25 SP TYPE: Pap Smr [facility] DR: ORDERED: Pap Smear, PAP path review ----- ------- Signed (signature on file) Micah Scherer MD 01/30/25 1211 ----- ------- END OF REPORT us Tahira Meek NP LAB CYTOLOGY ORDERABLES Final Re sult [facility] [address] [place] [address] [phone] * BI Mammogram Screening Tomosynthesis Bilateral (12/07/2024 3:58 PM EDT) Anatomical Region Laterality Modality Breast Bilateral Mammography 12/07/2024 3:58 PM EDT Narrative 12/13/2024 5:07 PM EDT [facility] [address] [place] [address] [place] [address] Mammography Report Signed Patient: Nay Salvador MR#: [id number] : 1980 Acct:[id number] Age/Sex: 44 / F ADM Date: 12/07/24 Loc: [facility]MAMMO Attending Dr: Tahira Meek NP Ordering Physician: Tahira Meek NP Results: 1Negati ve Date of Service: 12/07/24 Follow Up: 1 Year From Orig inal Mammogram Procedure(s): MM tomosynthesis screening BI Accession Number(s): [id number] cc: Tahira Meek [employer] EXAMINATION: MM SCREENING DIGITAL BREAST TOMOSYNTHESIS, BILATERAL CLINICAL INFORMATION: Screening. Asymptomatic. COMPARISON: Mammography: Baseline. TECHNIQUE: Digital breast mammography with tomosynthesis is performed in both the craniocaudal and mediolateral oblique views along with computer-aided detection (CAD). FINDINGS: The breasts are heterogeneously dense, which may obscure small masses (ACR BI-RADS breast composition Category c). There are no significant masses, abnormal calcifications, or other abnormalities. MM/MM tomosynthesis screening BI IMPRESSION: No mammographic evidence of malignancy. ASSESSMENT: BI-RADS BI-RADS 1 - Negative RECOMMENDATION: Routine annual mammography screening. 1 year F/U This examination should not preclude the clinical evaluation of a suspicious palpable abnormality. This patient's information was entered into a reminder system with a target due date for their next mammogram. Electronically signed by: Ginna Padilla DO 12/13/2024 05:04 PM EDT Dictated By: Ginna Padilla DO Signed By: <Electronically signed by Ginna Padilla DO in OV> 12/13/24 1704 DD/ 1558 TD/TT: 12/07/24 1620 [employer] Pourer: Procedure Note Donotuseinterpreter, Image - [facility] [address] [place] [address] Mammography Report Signed Patient: Nay SalvadorMR#: [id number] : 1980Acct:[id number] Age/Sex: 44 / FADM Date: 12/07/24 Loc: HO.MAMMO Attending Dr: Tahira Meek [employer] Ordering Physician: Tahira Meek NPResults: 1Negati ve Date of Service: 12/07/24Follow Up: 1 Year From Orig inal Mammogram Procedure(s): MM tomosynthesis screening BI Accession Number(s): [id number] cc: Tahira Meek NP EXAMINATION: MM SCREENING DIGITAL BREAST TOMOSYNTHESIS, BILATERAL CLINICAL INFORMATION: Screening. Asymptomatic. COMPARISON: Mammography: Baseline. TECHNIQUE: Digital breast mammography with tomosynthesis is performed in both the craniocaudal and mediolateral oblique views along with computer-aided detection (CAD). FINDINGS: The breasts are heterogeneously dense, which may obscure small masses (ACR BI-RADS breast composition Category c). There are no significant masses, abnormal calcifications, or other abnormalities. MM/MM tomosynthesis screening BI IMPRESSION: No mammographic evidence of malignancy. ASSESSMENT: BI-RADS BI-RADS 1 - Negative RECOMMENDATION: Routine annual mammography screening. 1 year F/U This examination should not preclude the clinical evaluation of a suspicious palpable abnormality. This patient's information was entered into a reminder system with a target due date for their next mammogram. Electronically signed by: Ginna Padilla DO 12/13/2024 05:04 PM EDT Dictated By: Ginna Padilla DO Signed By: <Electronically signed by Ginna Padilla DO in OV> 12/13/24 1704 DD/ 1558 TD/TT: 12/07/24 1620 [employer] Pourer: Tahira Meek NP IMG BI PROCEDURES Final Result * Hepatitis C Antibody with Reflex to HCV, RNA, Quantitative, Real-Time PCR (10/18/2024 3:38 PM EDT) Hepatitis C Antibody Nonreactive Nonreactive [facility] Comment:Antibodies to HCV no t detected; does not exclude early acuteHCV infection. Blood Venous blood specimen / Unknown 10/18/2024 3:38 PM EDT 10/18/2024 4:45 PM EDT Tahira Meek NP LAB BLOOD ORDERABLES Final Resul t [facility] [address] [place] [address] [phone] * HIV-1/2 Antigen and Antibodies, Fourth Generation, with Reflexes (10/18/2024 3:38 PM EDT) HIV AB/AG Nonreactive Nonreactive [facility] Comment:HIV-1 p24 Ag and/or HIV-1/HIV-2 Ab not detected.A test result that is nonreactive does not exclude thepossibility of exposure to or infection with HIV-1 and/orHIV-2. Nonreactive results in this assay for individualswith prior exposure to HIV-1 and/or HIV-2 may be due toantigen and antibody levels that are below the limit ofdetection of this assay.The [employer] HIV Ag/Ab Combo assay result andsupplemental assay results should be interpreted inconjunction with the patient's clinical presentation,history and other laboratory results. If the results areinconsistent with clinical evidence, additional testing issuggested to confirm the result. Blood Venous blood specimen / Unknown 10/18/2024 3:38 PM EDT 10/18/2024 4:45 PM EDT us Tahira Meek NP LAB BLOOD ORDERABLES Final Resul t [facility] [address] [place] [phone] from Last 3 Months or Most Recently Relevant to Health Maintenance Insurance [facility] C[place] Care Teams Data Entry Technician Relationship Specialty Start Date End Date Tahira Meek NP [address] [place] [address] PCP - General Family Medicine 10/18/24
[2025-07-06 15:08] LABS: Rapid Plasma Reagin Ab Titer 1:2
== END 2025-07-05 13:25 | disposition home or self-care (01) ==
LOC: HO.HHCL 13:24
PROVIDERS: PCP Nurse Practitioner Family; Visit Provider Nurse Practitioner Family
DX: A51.9 Early syphilis, unspecified (principal)
CPT/HCPCS: 36415; 86592; 86593